=== PATIENT | female | born 1945 | race Caucasian/White ===

== ENCOUNTER → 2019-08-17 10:53 | Outpatient (CLI) | payer MEDICARE, SELFPAY ==
[2019-08-03 13:06] VITALS: BMI 27.8
--- NOTE | 2019-08-17 10:54 | ECHOD_ITS ---
Reason For Study: CURRIE Procedure This was a 2D Doppler, Color Flow transthoracic echocardiogram. Exam performed in department. Left Ventricle Normal LV size. The estimated ejection fraction is 65 %. No evidence for diastolic dysfunction. No regional wall motion abnormalities noted. Right Ventricle Normal RV size. Normal systolic function. Atria Normal left atrium. Normal right atrium. No doppler evidence for ASD. Mitral Valve There is no mitral valve stenosis. Mild (1+) mitral valve insufficiency. Tricuspid Valve There is no tricuspid stenosis. Pulmonary artery systolic pressure is 25-30 mmHg. Mild tricuspid valve insufficiency. Aortic Valve Trisinus/trileaflet aortic valve. There is no aortic stenosis. No aortic valve insufficiency. Pulmonic Valve There is no pulmonic valvular stenosis. Trivial pulmonic valve insufficiency. Great Vessels Normal aortic root. Pericardium/Pleural No pericardial effusion. MMode/2D Measurements & Calculations LVIDd: 4.0 cm IVSd: 0.92 cm Ao root diam: 2.7 cm LVIDs: 2.4 cm LVPWd: 0.90 cm RVDd: 2.8 cm FS: 38.9 % LAV(MOD-bp): 50.6 ml LA A4 area: 16.5 cm2 LA dimension(2D): 3.3 cm LAV(MOD-bp) Indexed: 29.0 ml/m2 LAV(MOD-sp2): 51.7 ml LAV(MOD-sp4): 47.4 ml RA A4 area: 12.8 cm2 Time Measurements MV dec time: 0.18 sec Doppler Measurements & Calculations MV E max chad: 92.3 cm/sec Lat Peak E' Chad: 11.0 cm/sec Med Peak E' Chad: 7.1 cm/sec MV A max chad: 110.8 cm/sec E/E' lat: 8.4 E/E' med: 12.9 MV E/A: 0.83 Ao V2 max: 135.1 cm/sec LV V1 max: 98.3 cm/sec PA V2 max: 102.9 cm/sec Ao max P.3 mmHg LV V1 max P.9 mmHg TR max chad: 239.4 cm/sec TR max P.7 mmHg Interpretation Summary The estimated ejection fraction is 65 %. No evidence for diastolic dysfunction. Mild (1+) mitral valve insufficiency. Pulmonary artery systolic pressure is 25-30 mmHg. Mild tricuspid valve insufficiency. Ordering Physician: Abhilash Landaverde Referring Physician: Maryann Dominguez Performed By: Katherine Beck, MAAMECS, RVT
== END ==
PROVIDERS: Family Provider Internal Medicine; PCP Internal Medicine; Referring Provider Specialist; Visit Provider Specialist
DX: I10 Essential (primary) hypertension (principal); I34.0 Nonrheumatic mitral (valve) insufficiency; R06.09 Other forms of dyspnea
CPT/HCPCS: 93306